=== PATIENT | male | born 1955 | race American Indian/Alaskan Native ===

== ENCOUNTER 2018-11-25 19:11 | Emergency (ER) | payer OTHER ==
[2018-11-25] MEDS ORDERED: MORPHINE IV ONE (19:54)
[2018-11-25] MEDS ORDERED: ZOFRAN IV ONE (19:54)
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
[2018-11-25 22:32] VITALS: BP 134/75
== END 2018-11-25 22:02 | disposition home or self-care (01) ==
LOC: ED 19:11
DX: S16.1XXA Strain of muscle, fascia and tendon at neck level, initial encounter (principal); S09.90XA Unspecified injury of head, initial encounter; S40.011A Contusion of right shoulder, initial encounter; V49.59XA Passenger injured in collision with other motor vehicles in traffic accident, initial encounter; Y93.89 Activity, other specified; Y92.89 Other specified places as the place of occurrence of the external cause; Y99.8 Other external cause status
CPT/HCPCS: 70450; 72125; 73030; 96374; 96375; 99284; J2270; J2405